=== PATIENT | female | born 1950 | race Caucasian/White ===

== ENCOUNTER 2022-01-13 09:05 | Outpatient (CLI) | payer MEDICARE, SELFPAY ==
[2022-01-13 13:49] LABS: Albumin* 4.3 g/dL (3.3-5.0); Chloride* 104 mmol/L (96-114)
[2022-01-13 13:50] LABS: Potassium* 4.3 mmol/L (3.6-5.1); Sodium* 138 mmol/L (135-149)
[2022-01-13 13:54] LABS: Alanine Aminotransferase* 21 U/L (4-35); Alkaline Phosphatase* 108 U/L (40-150); Aspartate Amino Transferase* 26 U/L (12-35); Bilirubin Total* 0.5 mg/dL (0.1-1.5); Blood Urea Nitrogen* 15 mg/dL (7-30); Calcium* 9.4 mg/dL (8.4-10.6); Carbon Dioxide* 27 mmol/L (20-32); Creatinine* 0.8 mg/dL (0.5-1.5); Estimated Glomerular Filt Rate 79 ml/min; Glucose* 111 mg/dL (60-115); Total Protein* 7.7 g/dL (6.0-8.3)
[2022-01-13 14:01] LABS: NT Pro B Type NatriureticPept* 70 PG/mL (0-125)
== END 2022-01-13 09:06 | disposition home or self-care (01) ==
PROVIDERS: PCP Physician Assistant Medical; Visit Provider Physician Assistant Medical
DX: R53.83 Other fatigue (principal); L30.4 Erythema intertrigo
CPT/HCPCS: 80053; 83880; 84443

== ENCOUNTER 2022-02-27 12:43 | Outpatient (CLI) | payer MEDICARE, SELFPAY ==
--- NOTE | 2022-02-27 13:00 | CRLHL7_ITS ---
For Patients: As a result of the Century Cures Act, medical imaging exams and procedure reports are released immediately into your electronic medical record. You may view this report before your referring provider. If you have questions, please contact your health care provider. BILATERAL SCREENING MAMMOGRAM WITH COMPUTER-AIDED DETECTION AND TOMOSYNTHESIS TECHNIQUE: CC and MLO views were obtained. These mammographic images have been obtained using full-field digital technique. These mammographic images were interpreted with the benefit of computer-aided detection. Breast Tomosynthesis was used in this interpretation. COMPARISON FILM: 12/14/14. FINDINGS: There are scattered areas of fibroglandular density IMPRESSION: There is no radiographic evidence for malignancy. ASSESSMENT: BI-RADS Category 1: Negative RECOMMENDATION: Routine screening mammogram in 1 year. A lay language report of this examination will be provided to the patient. José Miguel Yanes M.D. Diagnostic Radiologist [email or web address] MANN/Dictated by: José Miguel Yanes MD @ 02/28/2022 8:22:00 AM (Electronically Signed)
--- NOTE | 2022-02-27 13:30 | CRLHL7_ITS ---
For Patients: As a result of the Century Cures Act, medical imaging exams and procedure reports are released immediately into your electronic medical record. You may view this report before your referring provider. If you have questions, please contact your health care provider. DXA BONE MINERAL DENSITY STUDY Current height (in): 62.0 Weight (lb): 180.0 Menopause age: 47 Ethnicity: White 1. Have you had a previous hip or vertebral fracture? No. 2. Have you had any fractures during your adult life which did not result from significant trauma (e.g., auto accident)? No. 3. Did either of your parents have a hip fracture? No. 4. Do you smoke? No. 5. Have you ever taken Glucocorticoids? No. 6. Do you have rheumatoid arthritis? No. 7. Do you have secondary osteoporosis? No. 8. Do you drink 3 or more alcoholic drinks per day? No. 9. Are you being treated for osteoporosis? No. 10. Have you ever taken any of the following medications: Actonel, Evista, Fosamax, Miacalcin, Reclast, Boniva, Forteo, HRT (i.e. estrogen/hormone therapy), Protelos, Prolia, Vitamin D, Calcium, other ??? please specify. ANSWER: Yes, vitamin D. 11. Do you have any of the following medical conditions: Anorexia or bulimia, asthma or emphysema, end stage renal disease, hyperparathyroidism, any seizure disorders, cancer, inflammatory bowel diseases, hysterectomy, other ??? please specify. ANSWER: No. 12. What was your maximum height (inches)? 62 13. Do you perform weight bearing exercise regularly? No. 14. Do you regularly consume dairy products? Yes. 15. Do you drink caffeinated beverages? Yes. 16. At what age did your period start? 18 17. Are you premenopausal? No. 18. How many full term pregnancies have you had? 2 19. Have you ever missed your period for more than 6 months in a row (not including or menopause)? No. TECHNIQUE: Bone mineral density study was performed using the [employer]. FINDINGS: The results of the study expressed as bone mineral density (BMD) are as follows: Lumbar spine L1to L4: BMD: 1.087 g/cm2. T-score: 0.4. Z-score: 2.5. Neck Left: BMD: 0.676 g/cm2. T-score: -1.6. Z-score: 0.2. Right: BMD: 0.695 g/cm2. T-score: -1.4. Z-score: 0.4. Total Left: BMD: 1.000 g/cm2. T-score: 0.5. Z-score: 2.0. Right: BMD: 1.001 g/cm2. T-score: 0.5. Z-score: 2.0. IMPRESSION: Osteopenia. Comparison exams done prior to 11/2019 were performed on different unit, [employer]. FRAX 10-year Fracture Risk Major Osteoporotic Fracture: 9.4 percent Hip Fracture: 1.3 percent Reported Risk Factors: [place] ) Neck BMD= 0.676, BMI= 32.9 José Miguel Yanes M.D. Diagnostic Radiologist [email or web address] DSM/isaiah PT/Dictated by: José Miguel Yanes MD @ 03/04/2022 8:44:00 AM (Electronically Signed)
== END 2022-02-27 12:44 | disposition home or self-care (01) ==
LOC: MAMMO 12:44
PROVIDERS: PCP Physician Assistant Medical; Visit Provider Physician Assistant Medical
DX: Z12.31 Encounter for screening mammogram for malignant neoplasm of breast (principal); Z13.820 Encounter for screening for osteoporosis; M85.89 Other specified disorders of bone density and structure, multiple sites
CPT/HCPCS: 77063; 77067; 77080

== ENCOUNTER 2022-12-07 19:39 | Outpatient (CLI) | payer MEDICARE, SELFPAY ==
--- NOTE | 2022-12-16 08:51 | W.PM.SLEEP ---
Sleep Study Details Details Interpreting Provider: Aviva Date of Sleep Study: 12/07/22 Sleep Study Details: STUDY TYPE:? Home unattended ? BMI:? 32.9 ORDERING PROVIDER:? Aviva INDICATION:? Concerns about sleep apnea ? SLEEP SUMMARY:? 543.5 minutes monitored RESPIRATORY SUMMARY:? AHI 21.3, supine 31.9, left lateral 7.8, right lateral 8.0 Low oxygen 79 18.7% of study oxygenation less than 90% Snoring 0.2% PERIODIC LIMB MOVEMENTS OF SLEEP:? Not recorded during home study CARDIAC:? Range 38-100, mean 75 IMPRESSION:? Moderate obstructive sleep apnea with supine position dependency and significant desaturations Bradycardia was noted during study with a low heart rate of 38 RECOMMENDATION: Further cardiac evaluation may be indicated Regarding the sleep apnea treatment could consist of AutoSet CPAP at a pressure of 4-17.
== END 2022-12-07 19:40 | disposition home or self-care (01) ==
LOC: SLEEP 19:40
PROVIDERS: PCP Physician Assistant Medical; Visit Provider Otolaryngology
DX: G47.33 Obstructive sleep apnea (adult) (pediatric) (principal)
CPT/HCPCS: 95806

== ENCOUNTER 2023-01-09 11:21 | Day surgery (SDC) | payer MEDICARE, SELFPAY ==
[2023-01-09] VITALS (13 sets, daily range): BP systolic 131–163; BP diastolic 72–88; PULSE 74–94; RESP 14–20; TEMP 36.2–36.9; O2SAT 92–97; BMI 31.4
[2023-01-09] MEDS: SODIUM CHLORIDE 0.9 % (FLUSH) 10 ML SYRINGE IVF (11:50)
[2023-01-09] MEDS: LACTATED RINGERS 1000 ML 1,000 ML 100 ML IV (11:50)
[2023-01-09] MEDS: OXYMETAZOLINE 0.05% NASAL SPRAY 2 SPRAY NOSTRIL-B (11:50)
--- NOTE | 2023-01-09 13:04 | SUR.PREOP ---
Afrin given at 1150
--- NOTE | 2023-01-09 13:09 | W.ANESCHARGE ---
Anesthesia Charges Start Date/Time Anesthesia Start Date: 01/09/23 Anesthesia Start Time: 13:30 Stop Date/Time Anesthesia Stop Date: 01/09/23 Anesthesia Stop Time: 14:35 Summary Extremes of Age - Over 70 or under 1: MDA
[2023-01-09] MEDS: BUPIVACAINE 0.5%/EPINEPHRINE 0.9 MG (30.9 ML) INJECTION (14:15)
--- NOTE | 2023-01-09 14:28 | W.PM.ENTPROC ---
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 Postoperative diagnosis same Procedure nasal septoplasty, endoscopic bilateral complete ethmoidectomies, maxillary antrostomies with tissue removal, sphenoidotomies, endoscopic bilateral frontal balloon sinuplasty, biopsy right anterior inferior septal lesion. Note image guidance Medtronic system as well as endoscopy was used throughout the procedure Under general endotracheal anesthesia patient was prepped draped usual fashion the nose injected and decongested. A right hemitransfixion incision was made and a left anterior and posterior tunnel was created. A vertical incision was made through the cartilage anterior to the bony cartilaginous junction a right posterior tunnel created. There was very large right area 234 septal deflection. This was resected a large piece of the bone was trimmed and returned to intraseptal space. The hemitransfixion was closed with 2 4-0 chromic sutures. There is a small or ulcerative lesion noted at the right inferior septum that was removed with a shave biopsy and sent to pathology. The left middle turbinate was medialized in the inferior quarter of the uncinate process taken down exposing natural ostium to left maxillary sinus. This opening was enlarged to 8-9 mm diameter and a large amount of polypoid mucosa removed from the opening and the sinus itself. There was also inspissated mucus and pus. This was repeated on the right side in identical fashion. On the left side the ethmoid bulla was taken down and dissection carried out in an anterior to posterior direction removing a moderate to large amount of polypoid tissue. The sphenoid was entered through the posterior ethmoid and inspissated mucus was aspirated. The ethmoidectomy and sphenoidotomy repeated on the right side in identical fashion with identical findings. The Medtronic frontal balloon with image guidance was then cannulated into the left frontal recess. Dilation was performed at the opening and then just inside of the sinus. Small amount of polypoid tissue was removed from the frontal recess. This was repeated on the right side in identical fashion. Silastic stents were then secured with 3-0 nylon and a Merocel pack trimmed lengthwise and placed in the middle meatus on each side. The patient procedure well was taken recovery in satisfactory condition. Blood loss was less than 25 mL. Surgeon: Cory Mayer MD
--- NOTE | 2023-01-09 14:38 | W.ANESCHARGE ---
Anesthesia Charges Start Date/Time Anesthesia Start Date: 01/09/23 Anesthesia Start Time: 13:30 Stop Date/Time Anesthesia Stop Date: 01/09/23 Anesthesia Stop Time: 14:35 Summary Extremes of Age - Over 70 or under 1: [employer]
[2023-01-09] MEDS: ACETAMINOPHEN 325 MG TABLET PO (16:24)
== END 2023-01-09 17:50 | disposition home or self-care (01) ==
LOC: OR 11:22 → MEDSURG 15:04
PROVIDERS: PCP Physician Assistant Medical; Visit Provider Otolaryngology
PROC: (CPT 31231; principal; 2023-01-09 12:45)
DX: J34.2 Deviated nasal septum (principal); J32.2 Chronic ethmoidal sinusitis; J32.1 Chronic frontal sinusitis; J32.3 Chronic sphenoidal sinusitis; J34.89 Other specified disorders of nose and nasal sinuses; J33.8 Other polyp of sinus
CPT/HCPCS: 30520; 31267; 31257; 31276; 00160; 88305; 88311; 88312; 99100; A9270; J0330; J1100; J2250; J2405; J2704; J3010; J7120

== ENCOUNTER 2023-04-24 10:23 | Outpatient (CLI) | payer MEDICARE, SELFPAY | END 2023-04-24 10:24 | disposition home or self-care (01) | LOC: NFLDREF 04-27 08:41 | PROVIDERS: PCP Physician Assistant Medical; Referring Provider Physician Assistant Medical; Visit Provider Physician Assistant Medical | DX: Z00.00 Encounter for general adult medical examination without abnormal findings (principal); R53.83 Other fatigue; I10 Essential (primary) hypertension; E78.5 Hyperlipidemia, unspecified; Z13.6 Encounter for screening for cardiovascular disorders; Z13.0 Encounter for screening for diseases of the blood and blood-forming organs and certain disorders involving the immune mechanism; Z13.1 Encounter for screening for diabetes mellitus | CPT/HCPCS: 80053; 80061; 82306; 82728; 84443 ==

== ENCOUNTER 2023-11-19 10:00 | Outpatient (CLI) | payer MEDICARE, SELFPAY | END 2023-11-19 10:01 | disposition home or self-care (01) | LOC: NFLDREF 12-09 06:30 | PROVIDERS: PCP Physician Assistant Medical; Referring Provider Physician Assistant Medical; Visit Provider Physician Assistant Medical | DX: E78.5 Hyperlipidemia, unspecified (principal) | CPT/HCPCS: 80061 ==

== ENCOUNTER 2024-01-28 13:15 | Outpatient (CLI) | payer MEDICARE, SELFPAY ==
--- NOTE | 2024-01-28 13:40 | CRLHL7_ITS ---
For Patients: As a result of the Century Cures Act, medical imaging exams and procedure reports are released immediately into your electronic medical record. You may view this report before your referring provider. If you have questions, please contact your health care provider. BILATERAL SCREENING MAMMOGRAM WITH COMPUTER-AIDED DETECTION AND TOMOSYNTHESIS TECHNIQUE: CC and MLO views were obtained. These mammographic images have been obtained using full-field digital technique. These mammographic images were interpreted with the benefit of computer-aided detection. Breast Tomosynthesis was used in this interpretation. COMPARISON FILM: 02/27/22, 12/14/14. FINDINGS: There are scattered areas of fibroglandular density IMPRESSION: There is no radiographic evidence for malignancy. ASSESSMENT: BI-RADS Category 1: Negative RECOMMENDATION: Routine screening mammogram in 1 year. A lay language report of this examination will be provided to the patient. José Miguel Yanes M.D. Diagnostic Radiologist [email or web address] HALIMA/[email or web address] / bM/Dictated by: José Miguel Yanse MD @ 01/29/2024 9:22:00 AM (Electronically Signed)
--- NOTE | 2024-01-28 14:00 | CRLHL7_ITS ---
For Patients: As a result of the Century Cures Act, medical imaging exams and procedure reports are released immediately into your electronic medical record. You may view this report before your referring provider. If you have questions, please contact your health care provider. EXAMINATION: MRA HEAD WITHOUT CONTRAST DATE: 01/29/2024. HISTORY: Patient with known brain aneurysm. TECHNIQUE: 3D TOF MRA of the head was performed. COMPARISON: MRA 12/14/2014. 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 There are no new aneurysms. The rest of the intracranial vasculature is unremarkable. 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 Telehealth consultation with [facility]s Neurointerventional team for enrollment in our long-term brain aneurysm surveillance program can be arranged by calling . Jewell Scott M.D. Neurointerventional Radiologist [facility] [place] Pager: Office/Referrals: [facility] Center: [email or web address] Dictated by: Jewell Scott MD @ 01/29/2024 15:49:27 (Electronically Signed)
== END 2024-01-28 13:16 | disposition home or self-care (01) ==
PROVIDERS: PCP Physician Assistant Medical; Visit Provider Physician Assistant Medical
DX: I67.1 Cerebral aneurysm, nonruptured (principal); R20.2 Paresthesia of skin; I10 Essential (primary) hypertension; R51.9 Headache, unspecified; Z12.31 Encounter for screening mammogram for malignant neoplasm of breast
CPT/HCPCS: 70544; 77063; 77067

== ENCOUNTER 2024-04-06 12:24 | Outpatient (CLI) | payer MEDICARE, SELFPAY ==
[2024-04-06 12:59] LABS: Creatinine* 0.8 mg/dL (0.5-1.5); Estimated Glomerular Filt Rate 78 ml/min
--- NOTE | 2024-04-06 13:00 | CRLHL7_ITS ---
For Patients: As a result of the Century Cures Act, medical imaging exams and procedure reports are released immediately into your electronic medical record. You may view this report before your referring provider. If you have questions, please contact your health care provider. INDICATION: Generalized abdominal pain. COMPARISON: None. TECHNIQUE: CT abdomen and pelvis with intravenous contrast; coronal and sagittal reformats. Findings : No nodules through the lung bases. No evidence of pleural effusion. Normal size cardiac silhouette without any pericardial effusion. No focal hepatic or splenic pathology. No pancreatic pathology. Gallbladder is unremarkable. No adrenal pathology. No kidney stones or obstructive uropathy. No retroperitoneal lymphadenopathy. Normal appendix. Diverticulosis sigmoid colon without any CT evidence of diverticulitis or abscess. No pneumoperitoneum or intestinal obstruction. IMPRESSION: Negative CT abdomen and pelvis with intravenous contrast. Please note that all CT scans at this facility use dose modulation, iterative reconstruction, and/or weight-based dosing when appropriate to reduce radiation dose to as low as reasonably achievable. Dictated by Soledad Majano MD @ 04/08/2024 2:04:01 PM (Electronically Signed)
== END 2024-04-06 12:25 | disposition home or self-care (01) ==
LOC: CT 12:24
PROVIDERS: PCP Physician Assistant Medical; Visit Provider Internal Medicine
DX: R10.84 Generalized abdominal pain (principal); R19.8 Other specified symptoms and signs involving the digestive system and abdomen
CPT/HCPCS: 36415; 74177; 82565; Q9967

== ENCOUNTER 2025-01-25 12:31 | Outpatient (CLI) | payer MEDICARE, SELFPAY | END 2025-01-25 12:32 | disposition home or self-care (01) | LOC: NFLDREF 01-30 14:37 | PROVIDERS: PCP Physician Assistant Medical; Referring Provider Physician Assistant Medical; Visit Provider Physician Assistant | DX: N39.0 Urinary tract infection, site not specified (principal) | CPT/HCPCS: 87086 ==

== ENCOUNTER 2025-03-13 10:41 | Outpatient (CLI) | payer MEDICARE, SELFPAY ==
--- NOTE | 2025-03-13 11:00 | CRLHL7_ITS ---
For Patients: As a result of the Century Cures Act, medical imaging exams and procedure reports are released immediately into your electronic medical record. You may view this report before your referring provider. If you have questions, please contact your health care provider. Indication: Chronic sinusitis Technique: Noncontrast CT of the paranasal sinuses. Coronal and sagittal reformats. Bone and soft tissue algorithms. Comparison: CT report 10/31/2022 Findings: Frontal sinuses: Near complete opacification of the frontal sinuses and recesses, stable. Ethmoid air cells: Near complete opacification of the ethmoid air cells, similar to slightly progressed. Sphenoid sinuses: Mild circumferential mucosal thickening, right sphenoid sinus, improved. Complete opacification left sphenoid sinus containing dense/chronic inspissated secretions, progressed. Maxillary sinuses: Moderate circumferential mucosal thickening, left maxillary sinus, similar, with patent presumed surgically created drainage pathway. Improved aeration of the right maxillary sinus with residual moderate circumferential mucosal thickening and opacified ostiomeatal unit. Nasal cavity: Minimal smooth rightward nasal septum deviation. No nasal cavity masses. Partially paradoxical left middle turbinate is better appreciated on the prior study. No large sanaz bullosa. Other structures: No aggressive osseous lesions.. Small residual periapical lucency at the treated left maxillary 1st molar. Otherwise, no suspicious dental disease. Mild TMJ arthrosis. Left paraclinoid ICA stent. Clear mastoid air cells. Included intracranial structures are unremarkable for technique. IMPRESSION: 1. Pansinus mucosal inflammatory disease with multifocal opacification as detailed, slightly improved in some areas, slightly worsened in others relative to the 10/31/2022 exam. Please note that all CT scans at this facility use dose modulation, iterative reconstruction, and/or weight-based dosing when appropriate to reduce radiation dose to as low as reasonably achievable. Dictated by Cherry Valdez MD @ 03/13/2025 3:08:02 PM (Electronically Signed)
== END 2025-03-13 10:42 | disposition home or self-care (01) ==
LOC: CT 10:43
PROVIDERS: PCP Physician Assistant Medical; Visit Provider Otolaryngology
DX: J32.9 Chronic sinusitis, unspecified (principal)
CPT/HCPCS: 70486